=== PATIENT | male | born 1950 | race Caucasian/White ===

== ENCOUNTER → 2019-07-25 | Outpatient (CLI) | payer OTHER ==
[~2019-07-25] MED LIST: AMLO5 PO; AMOX500 PO; Flomax0.4 MG PO; HYDACE5 PO; Humalog100 UNIT/1; IBUP600 PO; INSUASPI SC; INSULANPEN; INSULANPEN SC; MECL12.5 PO; METF850 PO; NAPR220 PO; Norco 5-325 Ta1 EACH PO; PRAV20 PO; Prinivil10 MG PO; TADA10TA; TOUJEO SOL300 UNIT/1 SC; VICODIN ES 7.51 EACH PO; Zofran Odt4 MG SL
== END | disposition home or self-care (01) ==
LOC: LAB SHORT 18:42 → LAB EV 18:42
DX: H10.9 Unspecified conjunctivitis (principal)
CPT/HCPCS: 87070; 87077; 87185; 87205

== ENCOUNTER → 2019-11-03 | Outpatient (CLI) | payer OTHER ==
[2019-11-03 13:33] LABS: Creatinine Urine 55.1 mg/dL (27.00-270.00)
== END | disposition home or self-care (01) ==
LOC: LAB EV 08:00 → LAB SHORT 08:00
PROVIDERS: Internal Medicine Endocrinology, Diabetes & Metabolism
DX: I10 Essential (primary) hypertension (principal)
CPT/HCPCS: 81050; 82570; 84300

== ENCOUNTER → 2021-01-21 | Outpatient (CLI) | payer OTHER ==
[2021-01-21 10:21] LABS: BASOPHILS ABSOLUTE AUTO 0.08 K/mm3 (0.00-0.23); BASOPHILS PERCENT AUTO 1 % (0-2); EOSINOPHILS PERCENT AUTO 1 % (0-6); Hematocrit 36.1 % (37.0-53.0); Hemoglobin 11.8 g/dL (13.5-17.5); IMMATURE GRAN ABSOLUTE AUTO 0.11 K/mm3 (0.00-0.10); IMMATURE GRAN PERCENT AUTO 1 % (0-1); LYMPHOCYTES ABSOLUTE AUTO 1.93 K/mm3 (0.84-5.20); LYMPHOCYTES PERCENT AUTO 13 % (21-46); MONOCYTES PERCENT AUTO 7 % (4-13); Mean Corpuscular HGB 26.5 pg (26.0-34.0); Mean Corpuscular HGB Conc 32.7 g/dL (31.5-36.5); Mean Corpuscular Volume 81 fL (80-100); Mean Platelet Volume 9.3 fL (9.1-12.4); NEUTROPHILS ABSOLUTE AUTO 11.37 K/mm3 (1.96-9.15); NEUTROPHILS PERCENT AUTO 78 % (41-73); Platelet Count 426 K/mm3 (150-400); RDW Coefficient Variation 13.6 % (11.7-14.2); RDW Standard Deviation 40.2 fL (35.1-46.3); Red Blood Cell Count 4.45 M/mm3 (4.30-5.90); White Blood Cell Count 14.69 K/mm3 (4.00-11.30)
[2021-01-21 10:26] LABS: Bun/Creatinine Ratio 10.6 (12.0-20.0); Calcium, Blood 9.3 mg/dL (8.5-10.1); Creatinine, Blood 1.41 mg/dL (0.60-1.20); Potassium, Blood 4.9 mmol/L (3.5-5.5)
== END | disposition home or self-care (01) ==
LOC: LAB SHORT 10:17
PROVIDERS: Physician Assistant Surgical
DX: R19.7 Diarrhea, unspecified (principal)
CPT/HCPCS: 80048; 85025

== ENCOUNTER → 2021-01-26 | Outpatient (CLI) | payer OTHER ==
[~2021-01-26] MED LIST changes: +AMLO10 PO; +ASPI81CH PO; +Aldactone25 MG PO; +CARV25 PO; +DOXA4 PO; +HYDROCHLOROTH12.5 MG PO; +ISTALOL2.5 M2 BOTHEYES; +LISI20 PO; +NOVOLOG100 UNIT/2 SC; +OMEP20ER PO; +PRED20; +SYSTANE HYDRATI10 ML BOTHEYES; +TOUJEO SOL300 UNIT/2; +TOUJEO SOL300 UNIT/2 SC; +TRAVOPROST2.5 ML BOTHEYES; +TRULICITY1.5 MG/0.1 SC; +Zoloft50 MG PO
[2021-01-27 11:59] LABS: Adenovirus F 40/41 Not Detected (NOT DETECT); Astrovirus Not Detected (NOT DETECT); Campylobacter Sp Not Detected (NOT DETECT); Cryptosporidium Not Detected (NOT DETECT); Cyclospora Cayetanensis Not Detected (NOT DETECT); E. Coli O157 Not Detected (NOT DETECT); Entamoeba Histolytica Not Detected (NOT DETECT); Enteroaggregative E. coli-EAEC Not Detected (NOT DETECT); Enteropathogenic E. coli-EPEC Not Detected (NOT DETECT); Enterotoxigenic E. coli-ETEC Not Detected (NOT DETECT); Giardia Lamblia Not Detected (NOT DETECT); Norovirus GI/GII Not Detected (NOT DETECT); Plesiomonas Shigelloides Not Detected (NOT DETECT); Rotavirus A Not Detected (NOT DETECT); Salmonella Sp Not Detected (NOT DETECT); Sapovirus Not Detected (NOT DETECT); Shiga Toxin-prod E. coli-STEC Not Detected (NOT DETECT); Shigella/Enteroin E. coli-EIEC Not Detected (NOT DETECT); Vibrio Cholerae Not Detected (NOT DETECT); Vibrio Sp Not Detected (NOT DETECT); Yersinia Enterocolitica Not Detected (NOT DETECT)
== END | disposition home or self-care (01) ==
LOC: LAB EV 21:20 → LAB SHORT 21:20
PROVIDERS: Physician Assistant Surgical
DX: R19.7 Diarrhea, unspecified (principal)
CPT/HCPCS: 0097U; 87177; 87209

== ENCOUNTER 2021-02-04 19:14 | Inpatient (IN) | payer OTHER, MEDICARE ==
[~2021-02-04] VITALS: Ht 188 cm; Wt 97.5 kg
[~2021-02-04 19:14] MED LIST changes: -AMLO10 PO; -ASPI81CH PO; -Aldactone25 MG PO; -CARV25 PO; -DOXA4 PO; -HYDROCHLOROTH12.5 MG PO; -ISTALOL2.5 M2 BOTHEYES; -LISI20 PO; -NOVOLOG100 UNIT/2 SC; -OMEP20ER PO; -PRED20; -SYSTANE HYDRATI10 ML BOTHEYES; -TOUJEO SOL300 UNIT/2; -TOUJEO SOL300 UNIT/2 SC; -TRAVOPROST2.5 ML BOTHEYES; -TRULICITY1.5 MG/0.1 SC; -Zoloft50 MG PO
[2021-02-04 20:09] LABS: BASOPHILS PERCENT AUTO 1 % (0-2); EOSINOPHILS PERCENT AUTO 2 % (0-6); Hematocrit 35.9 % (37.0-53.0); Hemoglobin 11.4 g/dL (13.5-17.5); IMMATURE GRAN ABSOLUTE AUTO 0.35 K/mm3 (0.00-0.10); IMMATURE GRAN PERCENT AUTO 2 % (0-1); LYMPHOCYTES ABSOLUTE AUTO 2.28 K/mm3 (0.84-5.20); LYMPHOCYTES PERCENT AUTO 13 % (21-46); MONOCYTES ABSOLUTE AUTO 1.09 K/mm3 (0.16-1.47); MONOCYTES PERCENT AUTO 6 % (4-13); Mean Corpuscular HGB Conc 31.8 g/dL (31.5-36.5); Mean Corpuscular Volume 82 fL (80-100); NEUTROPHILS ABSOLUTE AUTO 13.61 K/mm3 (1.96-9.15); NEUTROPHILS PERCENT AUTO 76 % (41-73); Platelet Count 577 K/mm3 (150-400); RDW Coefficient Variation 13.9 % (11.7-14.2); RDW Standard Deviation 41.4 fL (35.1-46.3); Red Blood Cell Count 4.39 M/mm3 (4.30-5.90); White Blood Cell Count 17.83 K/mm3 (4.00-11.30)
[2021-02-04 20:28] LABS: Alanine Aminotransfer (ALT/SGP 59 U/L (12-78); Albumin, Blood 2.5 g/dL (3.4-5.0); Albumin/Globulin Ratio 0.4 (0.8-1.8); Alk Phos 87 U/L (50-136); Anion Gap 6 mmol/L (6-16); Aspartate Aminotrans (AST/SGOT 20 U/L (12-37); Bilirubin, Total 0.3 mg/dL (0.1-1.0); Blood Urea Nitrogen 23 mg/dL (8-24); Bun/Creatinine Ratio 22.8 (12.0-20.0); CO2, Blood 28 mmol/L (21-32); Calcium, Blood 9.2 mg/dL (8.5-10.1); Chloride, Blood 100 mmol/L (98-108); Creatinine, Blood 1.01 mg/dL (0.60-1.20); Globulin, Blood 5.8 g/dL (2.2-4.0); Glomerular Filtration Rate >60 (60-); Glucose, Blood 228 mg/dL (70-99); Potassium, Blood 4.8 mmol/L (3.5-5.5); Sodium, Blood 134 mmol/L (136-145); Total Protein, Blood 8.3 g/dL (6.4-8.2)
[2021-02-04 21:45] LABS: Source, Urine Clean Catch
[2021-02-04 21:52] LABS: Blood, Urine 1+ (Neg); Glucose Qualitative, Urine 1+ (Neg); Ketones, Urine 1+ (Neg); Leukocyte Esterase, Urine 1+ (Neg); Nitrite, Urine Neg (Neg); Protein, Urine 2+ (Neg); Specific Gravity, Urine 1.025 (1.003-1.022); Urobilinogen, Urine 1+ (Normal)
[2021-02-04 21:54] LABS: Appearance, Urine Clear (Clear); Bilirubin, Urine 1+ (Neg); Color, Urine Yellow (P-Yellow)
[2021-02-04 21:59] LABS: Amorphous Light (0-Heavy); Bacteria Few /hpf; Mucus Light (0-Heavy); Red Blood Cells, Urine 0-2 /hpf (0-2); Squamous Epithelial Cells Not Seen /hpf (Few)
[2021-02-04] MEDS ORDERED: LISI20 PO (23:21)
[2021-02-04] MEDS ORDERED: CARV25 PO (23:21)
[2021-02-04] MEDS ORDERED: PRAV20 PO (23:22)
[2021-02-04] MEDS ORDERED: HYDROCHLOROTH12.5 MG PO (23:22)
[2021-02-04] MEDS ORDERED: DOXA4 PO (23:23)
[2021-02-04] MEDS ORDERED: AMLO10 PO (23:23)
[2021-02-04] MEDS ORDERED: Zoloft50 MG PO (23:24)
[2021-02-04] MEDS ORDERED: Aldactone25 MG PO (23:24)
[2021-02-04] MEDS ORDERED: TOUJEO SOL300 UNIT/2 SC (23:25)
[2021-02-04] MEDS ORDERED: NOVOLOG100 UNIT/2 SC (23:27)
[2021-02-04] MEDS ORDERED: TRULICITY1.5 MG/0.1 SC (23:29)
[2021-02-04] MEDS ORDERED: ISTALOL2.5 M2 BOTHEYES (23:32)
[2021-02-04] MEDS ORDERED: TRAVOPROST2.5 ML BOTHEYES (23:32)
[2021-02-04] MEDS ORDERED: SYSTANE HYDRATI10 ML BOTHEYES (23:34)
[2021-02-04 23:52] LABS: CPK Creatine Kinase 26 U/L (39-308); Troponin I <0.015 ng/mL (0.000-0.040)
[2021-02-05 05:40] LABS: Adenovirus Not Detected (NOT DETECT); Bordetella pertussis Not Detected (NOT DETECT); Chlamydophila pneumoniae Not Detected (NOT DETECT); Coronavirus 229E Not Detected (NOT DETECT); Coronavirus HKU1 Not Detected (NOT DETECT); Coronavirus NL63 Not Detected (NOT DETECT); Coronavirus OC43 Not Detected (NOT DETECT); Human Metapneumovirus Not Detected (NOT DETECT); Human Rhinovirus/Enterovirus Not Detected (NOT DETECT); Influenza A/2009-H1 Not Detected (NOT DETECT); Influenza A/H1 Not Detected (NOT DETECT); Influenza A/H3 Not Detected (NOT DETECT); Influenza B Not Detected (NOT DETECT); Mycoplasma pneumoniae Not Detected (NOT DETECT); Parainfluenza Virus 1 Not Detected (NOT DETECT); Parainfluenza Virus 2 Not Detected (NOT DETECT); Parainfluenza Virus 3 Not Detected (NOT DETECT); Parainfluenza Virus 4 Not Detected (NOT DETECT); Respiratory Syncytial Virus Not Detected (NOT DETECT); SARS-Cov-2 (COVID-19), BioFire Not Detected (NOT DETECT)
[2021-02-05 06:23] LABS: Appearance, CSF Clear (Clear); Color, CSF No Color (No Color)
[2021-02-05 06:24] LABS: RBC Count, CSF 0 /mm3 (0-0); WBC Count, CSF 0 /mm3 (0-5)
[2021-02-05 07:14] LABS: Anion Gap 6 mmol/L (6-16); Blood Urea Nitrogen 23 mg/dL (8-24); Bun/Creatinine Ratio 23.2 (12.0-20.0); CO2, Blood 28 mmol/L (21-32); Calcium, Blood 8.6 mg/dL (8.5-10.1); Chloride, Blood 102 mmol/L (98-108); Creatinine, Blood 0.99 mg/dL (0.60-1.20); Glomerular Filtration Rate >60 (60-); Glucose, Blood 155 mg/dL (70-99); Potassium, Blood 4.2 mmol/L (3.5-5.5); Sodium, Blood 136 mmol/L (136-145)
[2021-02-05 07:24] LABS: Escherichia Coli K1 Not Detected (NOT DETECT); Haemophilus Influenza Not Detected (NOT DETECT); Listeria Monocytogenes Not Detected (NOT DETECT); Neisseria Meningitidis Not Detected (NOT DETECT); Streptococcus Agalactiae Not Detected (NOT DETECT); Streptococcus Pneumoniae Not Detected (NOT DETECT)
[2021-02-05 07:25] LABS: Cryptococcus Neoformans/Gattii Not Detected (NOT DETECT); Enterovirus Not Detected (NOT DETECT); Herpes Simplex Virus 1 Not Detected (NOT DETECT); Herpes Simplex Virus 2 Not Detected (NOT DETECT); Human Herpesvirus 6 Not Detected (NOT DETECT); Human Parechovirus Not Detected (NOT DETECT); Varicella Zoster Virus Not Detected (NOT DETECT)
--- NOTE | 2021-02-05 09:01 | NUR ---
0830 MEDICATIONS PT DECLINES SOME OF AM MEDS TELLS ME HE HAS VERY SPECIFIC GUIDELINES OF INSULIN DOSEAGE BASED ON HIS DIETARY INTAKE AND HE DOES NOT FEEL HE IS ABLE TO EAT ANY OF HIS BREAKFAST IT "IS ALL SUGAR" PT TELS ME HE EATS SALAD AND VEGETABLES FOR ALL MEALS. DIETARY CONSULT ORDERED SO PATIENT MAY DISCUSS HIS FOOD REQUESTS. PT REQUESTS MED LIST BE OBTAINED FROM [facility] THIS AM AND IS REQUESTING THAT ONLY SPECIFIC MEDS BE GIVEN AT THIS TIME
[2021-02-05] MEDS ORDERED: TOUJEO SOL300 UNIT/2 (09:08)
--- NOTE | 2021-02-05 09:30 | NUR ---
REQUESTED MED LIST FROM [facility]
--- NOTE | 2021-02-05 11:10 | NUR ---
ATIVAN GIVEN PRE MEDICATION FOR MRI DUE TO PATIENTS CLAUSTRAPHOBIA
--- NOTE | 2021-02-05 11:32 | NUR ---
TO MRI VIA WHEELCHAIR
--- NOTE | 2021-02-05 12:36 | NUR ---
1220 RETURN TO ROOM ,PT REPORTS TOLERATED MRI
--- NOTE | 2021-02-05 18:24 | NUR ---
SUMMARY PT REPORTS MILD HEADACHE BILAT TEMPLES AND SOME MUSCLE ACHES IN THIGH AREA. REPORTS SOME OCC BLACK AND WHITE LINES IN FIELD OF VISION. PT ALERT, ORIENTED AND COOPERATIVE. DENIES ANY WEAKNESS , REPORTS SLIGHT DECREASED SENSATION BLE WHICH IS HIS BASELINE DUE TO NEUROPATHY
--- NOTE | 2021-02-05 18:35 | NUR ---
ADMIT: 02/04/21 DISCHARGE: DX: TIA/leukocytosis/muscle aches/aseptic meningitis CC: [email or web address] WHIT CALL: RESIDENCE: home with spouse CAREGIVER: Nasrin Padilla, Spouse / Partner, Cristian Salinas, Child, DX: HTN, MOSQUERA, GERD, DM, see list DME: DM supplies, CCM: none HOME HEALTH: none SUMMARY: Admit: 02/04/21 02/05/21- per chart review with Dr. Alegria, no plan for d/c at this time. Pt was recently in [facility], December. Dietary consult has been ordered due to pt's food requests. MRI and spinal tap were also ordered. -jessica
[2021-02-06 04:40] LABS: BASOPHILS ABSOLUTE AUTO 0.03 K/mm3 (0.00-0.23); BASOPHILS PERCENT AUTO 0 % (0-2); EOSINOPHILS ABSOLUTE AUTO 0.01 K/mm3 (0.00-0.68); EOSINOPHILS PERCENT AUTO 0 % (0-6); Hematocrit 33.9 % (37.0-53.0); Hemoglobin 11.1 g/dL (13.5-17.5); IMMATURE GRAN ABSOLUTE AUTO 0.21 K/mm3 (0.00-0.10); IMMATURE GRAN PERCENT AUTO 2 % (0-1); LYMPHOCYTES ABSOLUTE AUTO 1.25 K/mm3 (0.84-5.20); LYMPHOCYTES PERCENT AUTO 11 % (21-46); MONOCYTES ABSOLUTE AUTO 0.12 K/mm3 (0.16-1.47); MONOCYTES PERCENT AUTO 1 % (4-13); Mean Corpuscular HGB 26.4 pg (26.0-34.0); Mean Corpuscular HGB Conc 32.7 g/dL (31.5-36.5); Mean Corpuscular Volume 81 fL (80-100); NEUTROPHILS ABSOLUTE AUTO 10.11 K/mm3 (1.96-9.15); NEUTROPHILS PERCENT AUTO 86 % (41-73); Platelet Count 460 K/mm3 (150-400); RDW Coefficient Variation 13.9 % (11.7-14.2); RDW Standard Deviation 40.8 fL (35.1-46.3); White Blood Cell Count 11.73 K/mm3 (4.00-11.30)
[2021-02-06 04:58] LABS: Albumin, Blood 2.1 g/dL (3.4-5.0); Anion Gap 8 mmol/L (6-16); Blood Urea Nitrogen 25 mg/dL (8-24); Bun/Creatinine Ratio 26.7 (12.0-20.0); CO2, Blood 25 mmol/L (21-32); Calcium, Blood 8.8 mg/dL (8.5-10.1); Chloride, Blood 100 mmol/L (98-108); Creatinine, Blood 0.94 mg/dL (0.60-1.20); Glomerular Filtration Rate >60 (60-); Glucose, Blood 389 mg/dL (70-99); Phosphorus, Blood 3.7 mg/dL (2.5-4.9); Potassium, Blood 4.7 mmol/L (3.5-5.5); Sodium, Blood 133 mmol/L (136-145)
--- NOTE | 2021-02-06 14:35 | NUR ---
pt reading a magazine- reports his right eye is slightly blurry after 15 min of reading. reports if covers left eye can see "glitter type" floating particles out of right eye. pt states walked to bathroom and had no leg weakness. pt states headache has completely resolved at this time
[2021-02-06 17:08] LABS: ANA DIRECT Negative (Negative); ANTI-DNA (DS) AB QN <1 IU/mL (0-9); RNP ANTIBODIES <0.2 AI (0.0-0.9); SJOGREN'S ANTI-SS-A <0.2 AI (0.0-0.9); SJOGREN'S ANTI-SS-B <0.2 AI (0.0-0.9); SMITH ANTIBODIES <0.2 AI (0.0-0.9)
--- NOTE | 2021-02-06 17:38 | NUR ---
summary PT DENIES HEADACHE OR ANY VISUAL DISTURBANCES AT THIS TIME. PT STATES HIS EYES FATIGUE AFTER READING FOR 15-20 MIN AND HE BEGINS TO SEE BLACK AND WHITE "FLASHES OR GLITTER" THAT RESOLVES WITH A FEW MINUTES OF REST
[2021-02-07 04:56] LABS: BASOPHILS ABSOLUTE AUTO 0.03 K/mm3 (0.00-0.23); BASOPHILS PERCENT AUTO 0 % (0-2); EOSINOPHILS PERCENT AUTO 0 % (0-6); Hematocrit 32.8 % (37.0-53.0); Hemoglobin 10.7 g/dL (13.5-17.5); IMMATURE GRAN ABSOLUTE AUTO 0.28 K/mm3 (0.00-0.10); IMMATURE GRAN PERCENT AUTO 1 % (0-1); LYMPHOCYTES ABSOLUTE AUTO 1.62 K/mm3 (0.84-5.20); LYMPHOCYTES PERCENT AUTO 8 % (21-46); MONOCYTES ABSOLUTE AUTO 0.87 K/mm3 (0.16-1.47); MONOCYTES PERCENT AUTO 4 % (4-13); Mean Corpuscular HGB 26.1 pg (26.0-34.0); Mean Corpuscular HGB Conc 32.6 g/dL (31.5-36.5); Mean Corpuscular Volume 80 fL (80-100); Mean Platelet Volume 9.4 fL (9.1-12.4); NEUTROPHILS ABSOLUTE AUTO 18.26 K/mm3 (1.96-9.15); NEUTROPHILS PERCENT AUTO 87 % (41-73); Platelet Count 548 K/mm3 (150-400); RDW Coefficient Variation 13.9 % (11.7-14.2); RDW Standard Deviation 40.2 fL (35.1-46.3); White Blood Cell Count 21.06 K/mm3 (4.00-11.30)
[2021-02-07 05:18] LABS: Anion Gap 6 mmol/L (6-16); Blood Urea Nitrogen 39 mg/dL (8-24); Bun/Creatinine Ratio 36.1 (12.0-20.0); CO2, Blood 25 mmol/L (21-32); Calcium, Blood 8.5 mg/dL (8.5-10.1); Chloride, Blood 98 mmol/L (98-108); Creatinine, Blood 1.08 mg/dL (0.60-1.20); Glomerular Filtration Rate >60 (60-); Glucose, Blood 444 mg/dL (70-99); Potassium, Blood 4.5 mmol/L (3.5-5.5); Sodium, Blood 129 mmol/L (136-145)
--- NOTE | 2021-02-07 05:39 | NUR ---
ELEVATED SUGAR NOTED THIS AM, DR TONEY NOTIFIED, X1 COVERAGE PER HSS.
--- NOTE | 2021-02-07 05:45 | NUR ---
PT AGREES TO ALLOW STUDENT TO PARTICIPATE IN CARE
--- NOTE | 2021-02-07 07:34 | NUR ---
SHIFT SUMMARY PT RESTED WELL THIS AM. AAOX4. PT DENIES ANY VISUAL/AUDITORY CHANGES THIS SHIFT. TINGLING TO BLE AT BASELINE PER PT R/T HX NEUROPATHY. UP INDEPENDENT IN ROOM. GOOD PO INTAKE + OUTPUT. ELEVATED BLOOD SUGARS NOTED THIS SHIFT, DR TONEY NOTIFIED THIS AM + X1 ORDER FOR HSS COVERAGE NOW. PT EDUCATED REGARDING INSULIN ADMINISTRATION. PT CURRENTLY RESTING IN BED WITH CALL LIGHT IN REACH.
--- NOTE | 2021-02-07 08:37 | NUR ---
PT BLOOD GLUCOSE 444, MEDICATED PER EMAR AND DR LEIGH NOTIFIED AT 0836
[2021-02-07] MEDS ORDERED: ASPI81CH PO (17:39)
[2021-02-07] MEDS ORDERED: OMEP20ER PO (17:44)
[2021-02-07] MEDS ORDERED: PRED20 (17:45)
--- NOTE | 2021-02-07 18:24 | NUR ---
DISCHARGE SUMMARY PT D/C TO HOME FROM UNIT AT 18:15. WRITTEN AND VERBAL DISCHARGE INSTRUCTION PROVIDED. PT VERBALIZED UNDERSTANDING OF THESE INSTRUCTIONS. PRESCRIPT[facility]. WHEELCHAIR TO VEHICLE, D/C HOME WITH .
--- NOTE | 2021-02-09 20:36 | NUR ---
SUMMARY: Admit: / Discharged home by Dr Cortez, Diabetic diet, follow up EFM 7 days, [place] will call Tuesday or Tuesday to follow up and schedule appt. Onael Torrez MD Specialty/ Purpose: When: Tuesday02/10/21 Location: Phone: Comment: TEMPORAL ARTERY BIOPSY
== END 2021-02-07 18:23 | disposition home or self-care (01) | DRG 546 ==
LOC: ER 19:14 → SURS 19:15 → ER 02-05 03:11 → SURS 02-05 03:11
PROVIDERS: Family Medicine; Hospitalist; Physician Assistant; ADMIT Internal Medicine
PROC: 009U3ZX Drainage of Spinal Canal, Percutaneous Approach, Diagnostic (ICD-10-PCS; principal; 2021-02-05)
DX: M31.6 Other giant cell arteritis (principal); G45.9 Transient cerebral ischemic attack, unspecified; R65.10 Systemic inflammatory response syndrome (SIRS) of non-infectious origin without acute organ dysfunction; Z20.822 Contact with and (suspected) exposure to COVID-19; I10 Essential (primary) hypertension; M79.18 Myalgia, other site; R19.7 Diarrhea, unspecified; T37.8X5A Adverse effect of other specified systemic anti-infectives and antiparasitics, initial encounter; E11.40 Type 2 diabetes mellitus with diabetic neuropathy, unspecified; Z90.49 Acquired absence of other specified parts of digestive tract; Z90.89 Acquired absence of other organs; Z98.890 Other specified postprocedural states; Z79.4 Long term (current) use of insulin; Z79.899 Other long term (current) drug therapy
CPT/HCPCS: 0202U; 36415; 70450; 70551; 71045; 80048; 80053; 80069; 81001; 82550; 82947; 83615; 84145; 84484; 85025; 85651; 86140; 86225; 86235; 87070; 87086; 87205; 87207; 87252; 87254; 87483; 89051; 93005; 93010; 93880; 96372; 96374; 99285-25; A9270; G0378; J0133; J1650; J1815; J2060; J2930; J7060

== ENCOUNTER 2021-02-10 09:19 | Day surgery (SDC) | payer OTHER ==
[~2021-02-10] VITALS: Ht 188 cm; Wt 95.7 kg
[~2021-02-10 09:19] MED LIST changes: +AMLO10 PO; +ASPI81CH PO; +Aldactone25 MG PO; +CARV25 PO; +DOXA4 PO; +HYDROCHLOROTH12.5 MG PO; +ISTALOL2.5 M2 BOTHEYES; +LISI20 PO; +NOVOLOG100 UNIT/2 SC; +OMEP20ER PO; +PRED20; +SYSTANE HYDRATI10 ML BOTHEYES; +TOUJEO SOL300 UNIT/2; +TOUJEO SOL300 UNIT/2 SC; +TRAVOPROST2.5 ML BOTHEYES; +TRULICITY1.5 MG/0.1 SC; +Zoloft50 MG PO
--- NOTE | 2021-02-10 10:33 | NUR ---
02/10/21 Dale3 Sarah Guzman CALL LIGHT WITHIN REACH.
== END 2021-02-10 14:30 | disposition home or self-care (01) ==
LOC: ORSCSDS 09:19
PROVIDERS: Otolaryngology
PROC: 03BS0ZX Excision of Right Temporal Artery, Open Approach, Diagnostic (ICD-10-PCS; principal; 2021-02-10 10:30)
DX: M31.6 Other giant cell arteritis (principal); I10 Essential (primary) hypertension; E11.9 Type 2 diabetes mellitus without complications; Z86.73 Personal history of transient ischemic attack (TIA), and cerebral infarction without residual deficits; Z79.899 Other long term (current) drug therapy
CPT/HCPCS: 82947; 88305; 88313; J0171; J1100; J2250; J3010; J7120

== ENCOUNTER → 2021-12-21 | Outpatient (CLI) | payer OTHER ==
[2021-12-21 15:24] LABS: BASOPHILS ABSOLUTE AUTO 0.06 K/mm3 (0.00-0.23); BASOPHILS PERCENT AUTO 1 % (0-2); EOSINOPHILS ABSOLUTE AUTO 0.19 K/mm3 (0.00-0.68); EOSINOPHILS PERCENT AUTO 3 % (0-6); Hematocrit 39.6 % (37.0-53.0); Hemoglobin 13.3 g/dL (13.5-17.5); IMMATURE GRAN ABSOLUTE AUTO 0.03 K/mm3 (0.00-0.10); IMMATURE GRAN PERCENT AUTO 0 % (0-1); LYMPHOCYTES ABSOLUTE AUTO 2.03 K/mm3 (0.84-5.20); LYMPHOCYTES PERCENT AUTO 29 % (21-46); MONOCYTES ABSOLUTE AUTO 0.69 K/mm3 (0.16-1.47); MONOCYTES PERCENT AUTO 10 % (4-13); Mean Corpuscular HGB 29.2 pg (26.0-34.0); Mean Corpuscular HGB Conc 33.6 g/dL (31.5-36.5); Mean Corpuscular Volume 87 fL (80-100); Mean Platelet Volume 9.5 fL (9.1-12.4); NEUTROPHILS PERCENT AUTO 57 % (41-73); Platelet Count 268 K/mm3 (150-400); RDW Coefficient Variation 12.8 % (11.7-14.2); RDW Standard Deviation 39.9 fL (35.1-46.3); Red Blood Cell Count 4.55 M/mm3 (4.30-5.90)
[2021-12-21 15:29] LABS: Bun/Creatinine Ratio 19.3 (12.0-20.0); Calcium, Blood 9.2 mg/dL (8.5-10.1); Creatinine, Blood 1.45 mg/dL (0.60-1.20); Potassium, Blood 4.5 mmol/L (3.5-5.5)
== END ==
LOC: LAB SHORT 15:19 → LAB 15:19
PROVIDERS: Physician Assistant Medical
DX: R07.81 Pleurodynia (principal)
CPT/HCPCS: 80048; 85025; 85379

== ENCOUNTER → 2022-05-19 | Outpatient (CLI) | payer OTHER ==
[~2022-05-19] MED LIST changes: +Benadryl 50 mg50 MG PO; +Neurontin 100100 MG PO
== END | disposition home or self-care (01) ==
LOC: LAB 10:36 → LAB SHORT 10:36
DX: M54.81 Occipital neuralgia (principal)
CPT/HCPCS: 85651

== ENCOUNTER 2024-06-08 07:13 | Emergency (ER) | payer OTHER ==
[~2024-06-08] VITALS: Ht 182.9 cm; Wt 102.1 kg
[2024-06-08] MEDS ORDERED: HYDR1TAB94 PO (08:35)
[2024-06-08 08:47] VITALS: BP 126/67
== END 2024-06-08 08:49 | disposition home or self-care (01) ==
LOC: ER 07:13
DX: S92.355A Nondisplaced fracture of fifth metatarsal bone, left foot, initial encounter for closed fracture (principal); I10 Essential (primary) hypertension; E11.40 Type 2 diabetes mellitus with diabetic neuropathy, unspecified; W23.0XXA Caught, crushed, jammed, or pinched between moving objects, initial encounter; Z79.52 Long term (current) use of systemic steroids; Z79.4 Long term (current) use of insulin; Z79.84 Long term (current) use of oral hypoglycemic drugs; Z79.899 Other long term (current) drug therapy; Z88.8 Allergy status to other drugs, medicaments and biological substances
CPT/HCPCS: 73630; 99283-25

== ENCOUNTER 2024-06-15 09:24 | Day surgery (SDC) | payer OTHER ==
[~2024-06-15] VITALS: Ht 188 cm; Wt 104.2 kg
[~2024-06-15 09:24] MED LIST changes: +Bupivacaine 0.5% HCl 5 MG/ML 30MLVIAL ONE; +HYDR1TAB94 PO
[2024-06-15] MEDS ORDERED: CeFAZolin Sodium 2,000 MG VIAL ONE (09:46)
[2024-06-15] MEDS ORDERED: NS 50 ML IV ONE (09:46)
[2024-06-15] MEDS ORDERED: Lactated Ringer's 1,000 ML IV ONE (10:09)
[2024-06-15] MEDS ORDERED: Midazolam HCl 1MG / ML 2ML Vial ONE (10:32)
[2024-06-15] MEDS ORDERED: EPINEPhrine HCl 1 MG/ML 1ML Amp XX ONE (11:02)
[2024-06-15 12:30] VITALS: BP 137/60
--- NOTE | 2024-06-15 12:30 | NUR ---
06/15/24 1230 April Neil SON PIA AND LAURYN PRESENT FOR DC INSTRUCTIONS. SON IS A NURSE IN [place], WILL BE STAYING WITH PT.
== END 2024-06-15 12:29 | disposition home or self-care (01) ==
LOC: ORSCSDS 09:24
PROVIDERS: Podiatrist Foot & Ankle Surgery
PROC: 0QSP04Z Reposition Left Metatarsal with Internal Fixation Device, Open Approach (ICD-10-PCS; principal; 2024-06-15 10:45)
DX: S92.355A Nondisplaced fracture of fifth metatarsal bone, left foot, initial encounter for closed fracture (principal); W18.42XA Slipping, tripping and stumbling without falling due to stepping into hole or opening, initial encounter; E11.9 Type 2 diabetes mellitus without complications; E78.5 Hyperlipidemia, unspecified; I10 Essential (primary) hypertension; F41.9 Anxiety disorder, unspecified; F32.A Depression, unspecified; Z79.4 Long term (current) use of insulin; Z79.899 Other long term (current) drug therapy; Z79.84 Long term (current) use of oral hypoglycemic drugs
CPT/HCPCS: C1713; C1769; J0171; J0690; J2250

== ENCOUNTER 2024-11-26 06:57 | Day surgery (SDC) | payer OTHER ==
[~2024-11-26] VITALS: Ht 188 cm; Wt 108.8 kg
[~2024-11-26 06:57] MED LIST changes: -Bupivacaine 0.5% HCl 5 MG/ML 30MLVIAL ONE; +Ciprofloxacin 0.3% Opth Soln 2.5 ML BTL ONE; +Dexamethasone Sod Phos 10 MG/ML 1ML VIAL ONE; +EPINEPhrine HCl 1 MG / ML 30ML Vial ONE; +Lidocaine 1%-Epineph 1:200000 30 ML SDV ONE; +Midazolam HCl 1MG / ML 2ML Vial ONE; +Ondansetron HCl 2 MG / ML 2ML Vial ONE; +Rocuronium Bromide 10 MG/ML 5ML Injection IV ONE; +Sugammadex Sodium 200 MG/2ML SDV (100 MG/ML) ONE; +propofoL 40 ML IV ONE
[2024-11-26] MEDS ORDERED: Citric Acid/Sodium Citrate 30 ML BTL ONE (07:16)
[2024-11-26] MEDS ORDERED: Ipratropium/Albuterol SulF 2.5-0.5MG/3 ML Amp ONE (07:16)
[2024-11-26] MEDS ORDERED: FIASP 100100 UNIT/3 SQ (07:40)
[2024-11-26] MEDS ORDERED: MOUNJARO12.5 MG/0. SQ (07:40)
[2024-11-26] MEDS ORDERED: ZOLOFT50 MG PO (07:42)
[2024-11-26] MEDS ORDERED: Lactated Ringer's 1,000 ML IV ONE (07:56)
--- NOTE | 2024-11-26 08:05 | NUR ---
11/26/24 08 WESLY MUNOZ DUONEB AND BICITRA GIVEN IN PRE OP PER DR CUMMINGS 3 LEAD ECG DONE IN PRE OP DU TO PT IRREGULAR HR
[2024-11-26] MEDS ORDERED: Lidocaine HCl 4% 5 ML SDA ONE (08:19)
[2024-11-26] MEDS ORDERED: Phenylephrine HCl 100 MCG/ML-NS 10MLSYR (1MG/10ML) ONE (09:07)
[2024-11-26 10:18] VITALS: BP 138/61
--- NOTE | 2024-11-26 11:05 | NUR ---
11/26/24 1105 Carolina Ponce C/O PAIN, PT ABLE TO TOLERATE FLUIDS WELL. IS AT BEDSIDE. PT VSS, ON RA. 02 SAT STABLE. ALL QUESTIONS ANSWERED AND CONCERNS ADDRESSED. PT PLEASANT AND COOPERATIVE WITH CARE PROVIDED. PT ASSISTED OUT TO PERSONAL VEHICLE. IS THE OUTPATIENT INTERVIEWING CLERK. PT'S GAIT STABLE, STAND BY ASSIST TO CAR FOR SAFETY.
== END 2024-11-26 10:58 | disposition home or self-care (01) ==
LOC: ORSCSDS 06:57
PROVIDERS: Otolaryngology
PROC: 099570Z Drainage of Right Middle Ear with Drainage Device, Via Natural or Artificial Opening (ICD-10-PCS; principal; 2024-11-26 08:15)
PROC: 097F8ZZ Dilation of Right Eustachian Tube, Via Natural or Artificial Opening Endoscopic (ICD-10-PCS; principal; 2024-11-26 08:15)
PROC: 097G8ZZ Dilation of Left Eustachian Tube, Via Natural or Artificial Opening Endoscopic (ICD-10-PCS; principal; 2024-11-26 08:15)
PROC: 099670Z Drainage of Left Middle Ear with Drainage Device, Via Natural or Artificial Opening (ICD-10-PCS; principal; 2024-11-26 08:15)
DX: H90.6 Mixed conductive and sensorineural hearing loss, bilateral (principal); H69.93 Unspecified Eustachian tube disorder, bilateral; I12.9 Hypertensive chronic kidney disease with stage 1 through stage 4 chronic kidney disease, or unspecified chronic kidney disease; E11.22 Type 2 diabetes mellitus with diabetic chronic kidney disease; N18.30 Chronic kidney disease, stage 3 unspecified; Z79.4 Long term (current) use of insulin; E78.5 Hyperlipidemia, unspecified; G47.33 Obstructive sleep apnea (adult) (pediatric); Z79.899 Other long term (current) drug therapy; Z79.84 Long term (current) use of oral hypoglycemic drugs
CPT/HCPCS: 82947; A9270; C1726; J0171; J1100; J2003; J2250; J2371; J2405; J2704

== ENCOUNTER → 2024-12-12 | Outpatient (CLI) | payer OTHER ==
[~2024-12-12] MED LIST changes: -Ciprofloxacin 0.3% Opth Soln 2.5 ML BTL ONE; -Dexamethasone Sod Phos 10 MG/ML 1ML VIAL ONE; -EPINEPhrine HCl 1 MG / ML 30ML Vial ONE; +FIASP 100100 UNIT/3 SQ; -Lidocaine 1%-Epineph 1:200000 30 ML SDV ONE; +MOUNJARO12.5 MG/0. SQ; -Midazolam HCl 1MG / ML 2ML Vial ONE; -Ondansetron HCl 2 MG / ML 2ML Vial ONE; -Rocuronium Bromide 10 MG/ML 5ML Injection IV ONE; -Sugammadex Sodium 200 MG/2ML SDV (100 MG/ML) ONE; +ZOLOFT50 MG PO; -propofoL 40 ML IV ONE
[2024-12-13 14:12] LABS: Adenovirus F 40/41 Not Detected (NOT DETECT); Astrovirus Not Detected (NOT DETECT); Campylobacter Sp Not Detected (NOT DETECT); Cryptosporidium Not Detected (NOT DETECT); Cyclospora Cayetanensis Not Detected (NOT DETECT); E. Coli O157 Not Detected (NOT DETECT); Entamoeba Histolytica Not Detected (NOT DETECT); Enteroaggregative E. coli-EAEC Not Detected (NOT DETECT); Enteropathogenic E. coli-EPEC Not Detected (NOT DETECT); Enterotoxigenic E. coli-ETEC Not Detected (NOT DETECT); Giardia Lamblia Detected (NOT DETECT); Norovirus GI/GII Not Detected (NOT DETECT); Plesiomonas Shigelloides Not Detected (NOT DETECT); Rotavirus A Not Detected (NOT DETECT); Salmonella Sp Not Detected (NOT DETECT); Sapovirus Not Detected (NOT DETECT); Shiga Toxin-prod E. coli-STEC Not Detected (NOT DETECT); Shigella/Enteroin E. coli-EIEC Not Detected (NOT DETECT); Vibrio Cholerae Not Detected (NOT DETECT); Vibrio Sp Not Detected (NOT DETECT); Yersinia Enterocolitica Not Detected (NOT DETECT)
== END ==
LOC: LAB 17:36 → LAB SHORT 17:36
PROVIDERS: Nurse Practitioner Family
DX: R19.7 Diarrhea, unspecified (principal)
CPT/HCPCS: 87507

== ENCOUNTER 2025-03-19 07:50 | Day surgery (SDC) | payer OTHER ==
[~2025-03-19] VITALS: Ht 188 cm; Wt 104.2 kg
[2025-03-19] MEDS ORDERED: Lactated Ringer's 1,000 ML IV ONE ×2 (08:07→09:10)
[2025-03-19] MEDS ORDERED: propofoL 50 ML IV ONE (08:07)
[2025-03-19 10:29] VITALS: BP 148/68
== END 2025-03-19 10:31 | disposition home or self-care (01) ==
LOC: ORSCSDS 07:50
PROVIDERS: Internal Medicine Gastroenterology
PROC: 0DBP8ZX Excision of Rectum, Via Natural or Artificial Opening Endoscopic, Diagnostic (ICD-10-PCS; principal; 2025-03-19 09:15)
PROC: 0DBN8ZX Excision of Sigmoid Colon, Via Natural or Artificial Opening Endoscopic, Diagnostic (ICD-10-PCS; principal; 2025-03-19 09:15)
PROC: 0DBE8ZX Excision of Large Intestine, Via Natural or Artificial Opening Endoscopic, Diagnostic (ICD-10-PCS; principal; 2025-03-19 09:15)
DX: R19.4 Change in bowel habit (principal); D12.5 Benign neoplasm of sigmoid colon; K62.1 Rectal polyp; Z79.84 Long term (current) use of oral hypoglycemic drugs; Z79.899 Other long term (current) drug therapy
CPT/HCPCS: 82947; 88305; J2704; J7120

== ENCOUNTER → 2025-05-31 | Outpatient (CLI) | payer OTHER ==
[2025-05-31 08:51] LABS: BASOPHILS ABSOLUTE AUTO 0.07 K/mm3 (0.00-0.23); BASOPHILS PERCENT AUTO 1 % (0-2); EOSINOPHILS ABSOLUTE AUTO 0.28 K/mm3 (0.00-0.68); EOSINOPHILS PERCENT AUTO 3 % (0-6); Hematocrit 39.1 % (37.0-53.0); Hemoglobin 13.2 g/dL (13.5-17.5); IMMATURE GRAN ABSOLUTE AUTO 0.09 K/mm3 (0.00-0.10); IMMATURE GRAN PERCENT AUTO 1 % (0-1); LYMPHOCYTES ABSOLUTE AUTO 2.22 K/mm3 (0.84-5.20); LYMPHOCYTES PERCENT AUTO 23 % (21-46); MONOCYTES ABSOLUTE AUTO 0.65 K/mm3 (0.16-1.47); MONOCYTES PERCENT AUTO 7 % (4-13); Mean Corpuscular HGB Conc 33.8 g/dL (31.5-36.5); Mean Corpuscular Volume 85 fL (80-100); NEUTROPHILS ABSOLUTE AUTO 6.36 K/mm3 (1.96-9.15); NEUTROPHILS PERCENT AUTO 66 % (41-73); NRBC ABSOLUTE 0.00 K/mm3 (0.00-0.02); NRBC Auto 0.0 /100 WBC (0.0-0.2); Platelet Count 229 K/mm3 (150-400); RDW Coefficient Variation 14.1 % (11.7-14.2); RDW Standard Deviation 43.1 fL (35.1-46.3)
[2025-05-31 09:04] LABS: Alanine Aminotransfer (ALT/SGP 30.0 U/L (12-78); Albumin, Blood 3.8 g/dL (3.4-5.0); Albumin/Globulin Ratio 1.0 (0.8-1.8); Anion Gap 15.0 mmol/L (3-11); Aspartate Aminotrans (AST/SGOT 13.0 U/L (12-37); Bilirubin, Total 0.4 mg/dL (0.1-1.0); Blood Urea Nitrogen 27.0 mg/dL (8-24); CO2, Blood 25.0 mmol/L (21-32); Calcium, Blood 9.7 mg/dL (8.5-10.1); Chloride, Blood 99.0 mmol/L (98-108); Creatinine, Blood 1.07 mg/dL (0.60-1.20); Globulin, Blood 3.7 g/dL (2.2-4.0); Glucose, Blood 207.0 mg/dL (70-99); Magnesium, Blood 1.7 mg/dL (1.6-2.4); Potassium, Blood 4.7 mmol/L (3.5-5.5); Sodium, Blood 134.0 mmol/L (136-145); Total Protein, Blood 7.5 g/dL (6.4-8.2)
== END ==
LOC: LAB 08:46 → LAB SHORT 08:46
PROVIDERS: Physician Assistant
DX: R42 Dizziness and giddiness (principal)
CPT/HCPCS: 80053; 83735; 84484; 85025